=== PATIENT | male | born 1940 ===

== ENCOUNTER → 2017-10-26 | Emergency (ER) | payer OTHER ==
[~2017-10-26] VITALS: Ht 175.3 cm; Wt 93.0 kg
[~2017-10-26] MED LIST: CARVEDILOL3.125 MG; GLIMEPIRIDE4 MG; JANUMET 50-1,1 UDTAB; LASIX20 MG; NEURONTIN300 MG; PLAVIX75 MG; PROSCAR5 MG; RAMIPRIL5 MG; SIMVASTATIN20 MG; ZANTAC150 MG
== END | disposition home or self-care (01) ==
LOC: ER 00:36
DX: S01.02XA Laceration with foreign body of scalp, initial encounter (principal); W18.09XA Striking against other object with subsequent fall, initial encounter; Y93.89 Activity, other specified; Y92.018 Other place in single-family (private) house as the place of occurrence of the external cause; Y99.8 Other external cause status